=== PATIENT | female | born 1990 | race African-American/Black ===

== ENCOUNTER 2016-07-10 06:48 | Emergency (ER) | payer OTHER ==
--- NOTE | ~2016-07-10 | CR72 ---
[facility] A Service of [facility] & [facility] RADIOLOGY TEXT RESULTS PATIENT: CHELSEY BURLESON LOCATION: [facility] : [birth year] UNIT #: [id number] AGE: [address]: Brannon Benavides MD SEX: F ORDER DR: [id number] [facility] [address] [place], [place] [address] [id number] E MR#: [id number] #: [id number] NAME: CHELSEY BURLESON : 1990 SEX: F STUDY DATE/TIME: 07/10/2016 7:21 UNIT: [facility] ROOM: STUDY DESCRIPTION: CR Chest Single View Portable Attending Physician: Brannon Benavides M.D. Ordering Physician: Brannon Benavides M.D. Primary Care Physician: Primary Care Physician No MEDICAL IMAGING REPORT This report is preliminary unless electronic signature is present EXAM Portable chest one-view, 07/10/2016 COMPARISON None HISTORY 1-day history of cough with shortness of air. FINDINGS A single AP portable view of the chest shows both lungs to be clear. The heart is normal in size. The mediastinal contour is normal. No significant bone abnormalities are seen. IMPRESSION Normal portable chest. Dictated by... Toni Kaplan M.D. THIS IS AN ELECTRONICALLY VERIFIED REPORT Toni Kaplan M.D. at 07/10/2016 1:47 PM NANCY/vicky TD: 07/10/2016 08:04 JOB #: [id number] MEDICAL IMAGING REPORT Page 1 of 1 COPY
== END 2016-07-10 09:11 | disposition home or self-care (01) ==
LOC: CED 06:48
DX: J45.901 Unspecified asthma with (acute) exacerbation (principal)
CPT/HCPCS: 71010; 94640; 99283